=== PATIENT | male | born 1995 | race Caucasian/White ===

== ENCOUNTER 2022-02-16 18:59 | Emergency (ER) | payer OTHER, SELFPAY ==
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
[2022-02-16 19:09] VITALS: BP 136/93; PULSE 102; RESP 16; TEMP 36.8; O2SAT 98
[2022-02-16 19:13] VITALS: BP 136/93; PULSE 102; RESP 16; TEMP 36.8; O2SAT 98
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
== END 2022-02-16 20:00 | disposition home or self-care (01) ==
PROVIDERS: Emergency Provider Registered Nurse
DX: S42.021A Displaced fracture of shaft of right clavicle, initial encounter for closed fracture (principal); V86.05XA Driver of 3- or 4- wheeled all-terrain vehicle (ATV) injured in traffic accident, initial encounter
CPT/HCPCS: 73000; 99214; A4565; G0463

== ENCOUNTER 2022-07-11 14:59 | Emergency (ER) | payer OTHER, SELFPAY ==
--- NOTE | 2022-07-11 15:03 | ED.SKABFB ---
HPI - Skin/Abscess/Foreign Bdy General Chief complaint: Skin/Abscess/Foreign Body Stated complaint: Rash Source: patient and RN notes reviewed History of Present Illness HPI narrative: 26-year-old male presents to urgent care with of a rash to forearms, abdomen, and inner thighs. Patient states that all started when he was cutting a tree yesterday. Patient reports mild itching with this rash. Denies any vomiting shortness of, or fevers. Denies any new medications or foods. Related Data Allergies Allergy/AdvReac Type Severity Reaction Status Date / Time No Known Allergies Allergy Verified 07/11/22 15:03 Review of Systems Review of Systems: CONSTITUTIONAL: Denies fever, chills, or sweats. EYES: Denies visual changes, redness, or discharge. ENT: Denies otalgia and sore throat CARDIOVASCULAR: Denies chest pain, palpitations, or edema. RESPIRATORY: Denies cough or dyspnea. GASTROINTESTINAL: Denies abdominal pain, nausea, vomiting, or diarrhea. GENITOURINARY: Denies dysuria or hematuria. SKIN:rash MUSCULOSKELETAL: Denies back pain, joint pain, or myalgia. NEUROLOGIC: Denies headache, numbness, or weakness. ON LICENSE OF [facility] Past Medical History Medical History (Updated 07/11/22 @ 15:14 by Amrita Tyson, VISHNU) Fracture of right upper extremity Social History Social History (Updated 02/18/22 @ 13:04 by Lilian Saeed NP) Smoking status: Never smoker Alcohol intake: current Alcohol use details: social Substance use type: does not use Living arrangements: with family Gender identity (if verbalized by the patient): Male Comments At the time of my signature, I reviewed and agree with the nursing past medical, surgical, social, and family history. There is no relevant family history pertinent to the patient complaint. Exam Narrative: GENERAL: This is a well-nourished, well-developed patient, in no apparent distress. HEAD: normocephalic, atraumatic. EYES: PERRL. Sclera clear/white. Vision is grossly intact. EARS: External ears normal, auditory canals clear and without drainage, TMs normal without perforation. Hearing grossly intact. NOSE: External nose normal with no obvious nasal discharge, nares without redness, no rhinorrhea. THROAT: Mucous membranes moist, posterior pharynx clear. NECK: Neck supple, non-tender without lymphadenopathy, masses or thyromegaly. CARDIOVASCULAR: Regular rate and rhythm without murmurs, gallops, or rubs. RESPIRATORY: Clear to auscultation. Breath sounds equal bilaterally. No wheezes, rales, or rhonchi. GASTROINTESTINAL: Abdomen soft, non-tender, nondistended. Bowel sounds are active. No hepato-splenomegaly, or palpable masses. No guarding. SKIN: warm, intact. Bilateral inner forearms noted to be erythemic, extending from wrists to antecubital areas; not circumferential. No papules or drainage noted. NEURO: awake, alert, and oriented to person, place and time. There were no obvious focal neurologic abnormalities. EXTREMITIES: No clubbing, cyanosis, or edema. No joint tenderness, effusion, or edema noted. BACK: Nontender without deformity or crepitance. No flank tenderness. Course Course Level of Care: Express Care Visit Vital Signs Vital signs: Vital Signs Temperature 97.8 F 07/11/22 15:08 Pulse Rate 89 07/11/22 15:08 Respiratory Rate 18 07/11/22 15:08 Blood Pressure 121/81 07/11/22 15:08 Pulse Oximetry 100 07/11/22 15:08 Oxygen Delivery Room Air 07/11/22 15:08 Temperature 97.8 F 07/11/22 15:08 Pulse Rate 89 07/11/22 15:08 Respiratory Rate 18 07/11/22 15:08 Blood Pressure 121/81 07/11/22 15:08 Pulse Oximetry 100 07/11/22 15:08 Oxygen Delivery Room Air 07/11/22 15:08 Reviewed MDM - Skin/Abscess/Foreign Bdy MDM Narrative Medical decision making narrative: Take steroids as directed. May take Benadryl if needed for itching. If you develop any new or worsening symptoms, go the the emergency dept. Differential Diagnosis Differential d
[2022-07-11 15:08] VITALS: BP 121/81; PULSE 89; RESP 18; TEMP 36.6; O2SAT 100
== END 2022-07-11 15:18 | disposition home or self-care (01) ==
PROVIDERS: Emergency Provider Nurse Practitioner Family
DX: L25.5 Unspecified contact dermatitis due to plants, except food (principal)
CPT/HCPCS: 99213; G0463

== ENCOUNTER 2024-05-25 13:21 | Emergency (ER) | payer OTHER, SELFPAY ==
--- NOTE | 2024-05-25 13:24 | ED.WOUNDLAC ---
HPI - Wound/Laceration General Chief Complaint: Wound/Laceration Stated Complaint: Laceration to Right Hand Time Seen by Provider: 05/25/24 13:55 Source: patient and RN notes reviewed Mode of arrival: ambulatory Limitations: no limitations History of Present Illness HPI narrative: 28-year-old male presents concern for lacerations to the right hand. Reports prior to arrival he was working with a ratchet strap when the ratchet strap slipped and cut his hand. He is not up-to-date on his tetanus vaccination, but is refusing a tetanus vaccination. He denies any decreased strength, sensation, range of motion in the hand or digits. Related Data Allergies Allergy/AdvReac Type Severity Reaction Status Date / Time No Known Allergies Allergy Verified 07/11/22 15:03 Review of Systems Review of Systems: CONSTITUTIONAL: Denies malaise, chills, sweats, or fever. SKIN: Reports lacerations to the right hand MUSCULOSKELETAL: Denies muscle skeletal pain NEUROLOGIC: Denies numbness, weakness All systems reviewed & are unremarkable except as noted in HPI and below PMFSH Past Medical History Medical History (Updated 05/25/24 @ 14:34 by Lorraine Fields NP) Fracture of right upper extremity Social History Social History (Updated 02/18/22 @ 13:04 by Lilian Saeed NP) Smoking status: Never smoker Alcohol intake: current Alcohol use details: social Substance use type: does not use Living arrangements: with family Gender identity (if verbalized by the patient): Male Comments At time of signature, agree with nursing past medical, surgical, social and family history. There is no relevant family history pertinent to the presenting complaint Exam Narrative: GENERAL: Well-appearing, well-nourished, and in no acute distress. HEAD: Normocephalic EYES: PERRLA, conjunctivae clear NECK: Supple. CHEST: Speaks in full sentences. No respiratory distress. HEART: Regular rate and rhythm. Normal and equal peripheral pulses. EXTREMITIES: Right hand and digits of hand have normal strength and sensation. 5/5 strength with digit flexion, extension. Range of motion normal. No clubbing, cyanosis, or edema noted. Normal digital cascade with flexion of fingers, median, ulnar and radial nerve intact. Normal sensation of each side of finger. Can perform 'okay' sign, 'cross over finger test of index and middle fingers' and 'thumbs up' sign. No scissoring. Normal thumb opposition. Good capillary refill and radial pulse. Distal capillary refill less than 3 seconds. SKIN: Warn, dry, intact, pink. 3.5 cm linear laceration on the palmar aspect of the right hand through the subcutaneous tissue, 2.5 cm laceration into the subcutaneous tissue noted to the medial aspect of the 2nd digit of the right hand. 1 cm superficial laceration noted to the palmar aspect of the right hand NEURO: Alert and oriented x3. PSYCH: Normal mood and affect Course Course Emergency Course: Patient is aware of diagnosis, understands and agrees to treatment plan. Anticipatory guidance given. Patient agrees to follow-up as directed and is aware of reasons to seek care at the emergency department. Portions of this record may have been created with voice recognition software Level of Care: Express Care Visit Vital Signs Vital signs: Vital Signs Temperature 98.9 F 05/25/24 13:41 Pulse Rate 103 H 05/25/24 13:41 Respiratory Rate 18 05/25/24 13:41 Blood Pressure 142/82 H 05/25/24 13:41 Pulse Oximetry 99 05/25/24 13:41 Oxygen Delivery Room Air 05/25/24 13:41 Temperature 98.9 F 05/25/24 13:41 Pulse Rate 103 H 05/25/24 13:41 Respiratory Rate 18 05/25/24 13:41 Blood Pressure 142/82 H 05/25/24 13:41 Pulse Oximetry 99 05/25/24 13:41 Oxygen Delivery Room Air 05/25/24 13:41 Reviewed. Procedures Laceration Laceration 1: Date: 05/25/24 Time: 14:00 Site: hand Side (If applicable): right Size (cm): 3.5 Description: linear Depth: simple, single layer Local Anesthetic: lidocaine 1% Amount of anesthesia used (mL): 4 Pre-repair: wound explored and irrigated extensively ====== Skin Level ====== Skin layer closed with: nylon Size (cm): 4-0 Number of sutures: 6 Technique: simple, interrupted ====== Subcutaneous Layer ====== ====== Muscle Layer ====== ====== Tendon Layer ====== Laceration 2: Date: 05/25/24 Time: 14:00 Site: hand Side (If applicable): right Size (cm): 2.5 Description: irregular Depth: simple, single layer Local Anesthetic: lidocaine 1% Amount of anesthesia used (mL): 2 Pre-repair: wound explored and irrigated extensively ====== Skin Level ====== Skin layer closed with: nylon Size (cm): 4-0 Number of sutures: 5 Technique: simple, interrupted ====== Subcutaneous Layer ====== ====== Muscle Layer ====== ====== Tendon Layer ====== Laceration 3: Date: 05/25/24 Time: 14:25 Site: hand Side (If applicable): right Size (cm): 1 Description: linear Depth: simple, single layer Pre-repair: wound explored and irrigated ====== Skin Level ====== Skin layer closed with: dermabond ====== Subcutaneous Layer ====== ====== Muscle Layer ====== ====== Tendon Layer ====== MDM - Wound/Laceration MDM Narrative Medical decision making narrative: Wounds explored for foreign body and copious irrigation provided with no evidence of FB. Discussed the potential of retained foreign body with the patient and signs/symptoms that should prompt the patient to immediately go to the ED for reevaluation. The wound was explored and no foreign bodies were found. A sterile dressing was then applied and anticipatory guidance was provided. Tetanus prophylaxis was refused Differential Diagnosis Differential diagnosis: Likely laceration, abrasion and avulsion of skin Critical Care Time Critical Care Time Critical Care Time: No Discharge Plan Discharge Clinical Impression: Laceration Patient Disposition: Home, Self-Care Condition: Stable Instructions: Laceration (ED) Additional Instructions: Keep wound clean, and dry. Apply antibiotic ointment twice daily. Cover with bandage as needed to prevent contamination. Clean with soap and water twice daily, but do not soak, take baths, or swim until wound is completely healed. Do not clean with hydrogen peroxide. If any signs of infection such as redness, swelling, increasing pain, drainage of purulent discharge, streaks up your extremity develop, seek medical attention immediately. Followup with your primary care provider in 10 days for suture removal. After sutures are removed, keep your scar out of the sun. You may use OTC silicone pad and/or scar massage with ointment (for 10-15 min a day) after one month. Talk to your doctor if you think you are developing a keloid. Patient Language: [place]an Follow-up/Referrals: UNKNOWN,DOCTOR [Non-Staff] - Stand Alone Forms: Work/School Release IP Time of Disposition: 14:34
[2024-05-25 13:41] VITALS: BP 142/82; PULSE 103; RESP 18; TEMP 37.2; O2SAT 99
== END 2024-05-25 14:45 | disposition home or self-care (01) ==
PROVIDERS: Emergency Provider Nurse Practitioner
DX: S61.411A Laceration without foreign body of right hand, initial encounter (principal); S61.210A Laceration without foreign body of right index finger without damage to nail, initial encounter; W45.8XXA Other foreign body or object entering through skin, initial encounter
CPT/HCPCS: 12002; 99212; G0463; J2003